=== PATIENT | male | born 1945 | race Caucasian/White ===

== ENCOUNTER 2017-03-20 15:41 | Emergency (ER) | payer MEDICARE, OTHER ==
[2017-03-20 16:01] VITALS: BP 160/88
--- NOTE | 2017-03-20 16:28 | UC ---
Respiratory Complaint HPI - HPI Summary HPI Summary: C/O URI sx x 1 week with sinus pain. Rx with flonase, gave nose bleeds. Z-morgan without help, changed to amoxicillin still no relief. No fevers, sweats or chills. - History of Current Complaint Chief Complaint: UCRespiratory Stated Complaint: SINUS CONGESTION Time Seen by Provider: 03/20/17 16:03 Hx Obtained From: Patient Onset/Duration: Sudden Onset, Lasting Weeks - 1, Still Present Timing: Constant Severity Initially: Mild Severity Currently: Moderate Character: Cough: Productive Associated Signs And Symptoms: Positive: URI, Nasal Congestion, Hoarseness, Sinus Discomfort - Allergies/Home Medications Allergies/Adverse Reactions: Allergies Allergy/AdvReac Type Severity Reaction Status Date / Time No Known Allergies Allergy Verified 03/20/17 16:01 Home Medications: Home Medications Bp Medication DAILY 03/20/17 [History] Metformin HCl [Metformin HCl ER] 500 mg PO DAILY 03/20/17 [History Confirmed ] PMH/Surg Hx/FS Hx/Imm Hx Endocrine History: Diabetes, Dyslipidemia Cardiovascular History: Hypertension - Surgical History Surgical History: Yes Surgery Procedure, Year, and Place: bilateral knee surgery. laminectomy - Family History Known Family History: Positive: Cardiac Disease Negative: Hypertension, Diabetes - Social History Occupation: Retired Lives: With Family Alcohol Use: None Substance Use Type: None Smoking Status (MU): Never Smoked Tobacco Review of Systems ENT: Nasal Discharge, Sinus Congestion, Sinus Pain/Tenderness Respiratory: Cough Is Patient Immunocompromised?: No All Other Systems Reviewed And Are Negative: Yes Physical Exam Triage Information Reviewed: Yes Appearance: No Pain Distress, Well-Nourished, Ill-Appearing Vital Signs: Initial Vital Signs Temp 98.7 F 03/20/17 15:56 Pulse 96 03/20/17 15:56 Resp 17 03/20/17 15:56 BP 160/88 03/20/17 15:56 Pulse Ox 99 03/20/17 15:56 Vital Signs Reviewed: Yes Eyes: Positive: Conjunctiva Clear ENT: Positive: Pharynx normal, Nasal congestion, TMs normal Neck exam: Normal Respiratory Exam: Normal Cardiovascular Exam: Normal Musculoskeletal Exam: Normal Neurological Exam: Normal Psychological Exam: Normal Skin Exam: Normal UC Diagnostic Evaluation - Laboratory O2 Sat by Pulse Oximetry: 99 Respiratory Course/Dx - Differential Dx/Diagnosis Differential Diagnosis/HQI/PQRI: Asthma, Lower Resp Infection, Sinusitis Provider Diagnoses: Acute URI. Acute sinusitis Discharge - Discharge Plan Condition: Stable Disposition: HOME Prescriptions: Cefdinir [Cefdinir 300 MG CAP] 300 mg PO BID #20 cap Patient Education Materials: Upper Respiratory Infection (ED), Sinusitis (ED), Cefdinir (By mouth) Referrals: Andrea Pal MD [Primary Care Provider] - Additional Instructions: NASAL SPRAYS AND DROPS: Afrin in the PUMP/ MIST bottle (Get generic 12 hours nasal decongestant spray). Tilt your head down and look at the floor while doing a strong sniff with the spray. Decongestant nasal sprays and drops often give dramatic relief from congestion. They are often recommended for patients with sinus infection to assist with sinus drainage. Persons with high blood pressure should consult the doctor before using these nasal sprays. Afrin and Wily-Synephrine are common [id number] preparations. They should not be used for more than five days, as "rebound" congestion can occur - - the congestion flares as the drug wears off. A way of dealing with this rebound congestion problem is to medicate only one nostril each time, allowing the other nostril to recover from the medicine' s effects. When you no longer need the drug during the day, spray only one nostril each night. This helps you sleep well without severe rebound congestion. Call the doctor if you develop severe headache, palpitations, or chest pain. Service at [facility] S[facility]: CHECK OUT AT [facility] Saline nasal wash helps with mucous, allergies and congestion. It can be used up to twice a day or only as needed. Use lukewarm tap water. It does not have to be sterilized or distilled water. Do 1/3 on each side and snort out of both nostrils. Repeat the process with 1/6 of the bottle on each side with snorting in between to finish the solution in the bottle
== END 2017-03-20 16:42 | disposition home or self-care (01) ==
LOC: UCCORT 15:41
DX: J06.9 Acute upper respiratory infection, unspecified (principal); J01.90 Acute sinusitis, unspecified; E11.9 Type 2 diabetes mellitus without complications; Z79.84 Long term (current) use of oral hypoglycemic drugs; E78.5 Hyperlipidemia, unspecified; I10 Essential (primary) hypertension
CPT/HCPCS: 99212; G0463

== ENCOUNTER 2018-04-16 12:51 | Emergency (ER) | payer MEDICARE, BC ==
[2018-04-16 13:21] VITALS: BP 149/73
--- NOTE | 2018-04-16 13:57 | UC ---
Back Pain HPI - HPI Summary HPI Summary: 2 wks ago was shoveling snow for quite a while. Then last night started w/ L lower back pain that woke him up in the middle of the night. denies fall/ accident. Able to walk normally. lidocaine patch helps. standing for too long makes worse. - History of Current Complaint Chief Complaint: UCBackPain Stated Complaint: BACK PAIN Time Seen by Provider: 04/16/18 13:18 Hx Obtained From: Patient Onset/Duration: Gradual Onset Timing: Intermittent Severity Initially: Moderate Severity Currently: Mild Pain Intensity: 3 Pain Scale Used: 0-10 Numeric Character: Dull, Spasmodic Aggravating Factor(s): Movement, Lifting Alleviating Factor(s): Rest - Risk Factors Cauda Equina Risk Factors: Negative - Allergies/Home Medications Allergies/Adverse Reactions: Allergies Allergy/AdvReac Type Severity Reaction Status Date / Time shrimp Allergy Anaphylatic Verified 04/16/18 13:13 Shock lobster Allergy Anaphylatic Uncoded 04/16/18 13:13 Shock Home Medications: Home Medications Aspirin [Aspir-Low] 81 mg PO DAILY 04/16/18 [History Confirmed 04/16/18] Atorvastatin* [Lipitor*] 20 mg PO DAILY 04/16/18 [History Confirmed 04/16/18] Lisinopril TAB* [Prinivil TAB*] 10 mg PO DAILY 04/16/18 [History Confirmed 04/16] Metformin ER (NF) 1,000 mg PO BID 04/16/18 [History Confirmed 04/16/18] Pantoprazole Sodium 20 mg PO DAILY 04/16/18 [History Confirmed 04/16/18] oxyCODONE SR TAB(*) [Oxycontin 10 mg (*)] 30 mg PO DAILY PRN MDD 3 04/16/18 [ History Confirmed 04/16/18] PMH/Surg Hx/FS Hx/Imm Hx - Additional Past Medical History Additional PMH: hx of chronic lower back pain from laminectomy - Surgical History Surgical History: Yes Surgery Procedure, Year, and Place: bilateral knee surgery. laminectomy - Family History Known Family History: Positive: Cardiac Disease Negative: Hypertension, Diabetes - Social History Alcohol Use: Rare Substance Use Type: Prescribed Smoking Status (MU): Never Smoked Tobacco Review of Systems All Other Systems Reviewed And Are Negative: Yes Constitutional: Positive: Negative Skin: Positive: Negative Respiratory: Positive: Negative Cardiovascular: Positive: Negative Musculoskeletal: Positive: Other: - back pain -R side Neurological: Positive: Other - denies gait changes. Negative: Weakness, Numbness Physical Exam Triage Information Reviewed: Yes Appearance: Well-Appearing Vital Signs: Initial Vital Signs Temp 98.3 F 04/16/18 13:18 Pulse 94 04/16/18 13:18 Resp 16 04/16/18 13:18 BP 149/73 04/16/18 13:18 Pulse Ox 98 04/16/18 13:18 Vital Signs Reviewed: Yes Respiratory Exam: Normal Cardiovascular Exam: Normal Musculoskeletal: Positive: Other: - L lower back has minimal tenderness, no swelling or redness. Good rotation to L/R w/ little pain on L side during rotation. Neurological: Positive: Alert Back Pain Course/Dx - Course Course Of Treatment: L lower back pain, exacerbation on a chronic lower back pain patient. No signs of neuro deficits or gait changes. MSK in etiology. Plan is to tx w/ muscle relaxer and topical lidocaine patch since this helps already. currently on opiates for chronic lower back pain. - Differential Dx/Diagnosis Differential Diagnosis/HQI/PQRI: Arthritis, Herniated Disc, Strain, Sprain Provider Diagnosis: Back muscle spasm Discharge - Sign-Out/Discharge Documenting (check all that apply): Patient Departure All imaging exams completed and their final reports reviewed: No Studies - Discharge Plan Condition: Good Disposition: HOME Prescriptions: Cyclobenzaprine (NF) [Cyclobenzaprine 5 MG (NF)] 5 mg PO TID PRN 5 Days #25 tab PRN Reason: Spasms - Back Lidocaine PATCH 5%* [Lidoderm 5% Patch*] 1 patch TRANSDERM DAILY #5 patch Patient Education Materials: Muscle Spasm (ED) Referrals: Andrea Pal MD [Primary Care Provider] - Additional Instructions: follow up with pcp if not improving. - Billing Disposition and Condition Condition: GOOD Disposition: Home
== END 2018-04-16 14:05 | disposition home or self-care (01) ==
LOC: UCCORT 12:51
DX: M62.830 Muscle spasm of back (principal)
CPT/HCPCS: 99212; G0463